=== PATIENT | male | born 1950 | race Caucasian/White ===

== ENCOUNTER 2022-11-24 10:10 | Outpatient (CLI) | payer OTHER | END 2022-11-24 23:59 | disposition home or self-care (01) | LOC: VAS 10:10 | PROVIDERS: ATTEND Emergency Medicine | DX: I70.203 Unspecified atherosclerosis of native arteries of extremities, bilateral legs (principal); L89.90 Pressure ulcer of unspecified site, unspecified stage | CPT/HCPCS: 93922; 93925 ==